=== PATIENT | female | born 1985 | race African-American/Black ===

== ENCOUNTER 2021-05-07 14:41 | Emergency (ER) | payer MEDICAID, OTHER ==
[~2021-05-07] VITALS: Ht 167.6 cm; Wt 90.7 kg
[2021-05-07 21:45] VITALS: BP 139/89
[2021-05-07 22:21] LABS: Urine Bacteria FEW /hpf (None Seen); Urine Blood Negative /uL (Negative); Urine WBC 1 /hpf (0 - 5)
== END 2021-05-07 21:58 | disposition home or self-care (01) ==
LOC: ER 14:41 → EDUNIT# 14:41 → EDBD 14:41 → ER 21:49
DX: S30.1XXA Contusion of abdominal wall, initial encounter (principal); V43.52XA Car driver injured in collision with other type car in traffic accident, initial encounter; Y93.89 Activity, other specified; Y92.410 Unspecified street and highway as the place of occurrence of the external cause; Y99.8 Other external cause status
CPT/HCPCS: 71250; 74176; 81001